=== PATIENT | male | born 1950 | race Caucasian/White ===

== ENCOUNTER 2019-02-17 20:11 | Inpatient (IN) | payer MEDICARE, OTHER ==
[2019-02-17] MEDS ORDERED: ACETAMINOPHEN 325 MG TABLET (FP) PO ONE (20:53)
[2019-02-17] MEDS ORDERED: ACETAMINOPHEN 325 MG TABLET (FP) ONE (20:58)
--- NOTE | 2019-02-17 20:59 | PDOC ---
History of Present Illness - General Chief Complaint: Hemorrhoids Stated Complaint: HEMORRHOID PROBLEM Time Seen by Provider: 02/17/19 20:28 History Source: Patient, Family Exam Limitations: Language Barrier Past History - Past Medical History Allergies/Adverse Reactions: Allergies Allergy/AdvReac Type Severity Reaction Status Date / Time No Known Allergies Allergy Verified 02/17/19 20:18 Home Medications: Ambulatory Orders Atorvastatin Ca [Lipitor] 40 mg PO HS 02/17/19 Glipizide 10 mg PO ASDIR 02/17/19 Metformin HCl [Glucophage] 1,000 mg PO ASDIR 02/17/19 COPD: No Diabetes: Yes HTN: Yes Hypercholesterolemia: Yes - Suicide/Smoking/Psychosocial Hx Smoking History: Never smoked *Physical Exam - Vital Signs Last Vital Signs Temp Pulse Resp BP Pulse Ox 98.4 F 70 18 140/68 100 02/17/19 20:18 02/17/19 20:18 02/17/19 20:18 02/17/19 20:18 02/17/19 20:18 - Physical Exam General Appearance: No: Apparent Distress Respiratory/Chest: positive: Lungs Clear, Normal Breath Sounds. negative: Respiratory Distress Cardiovascular: positive: Regular Rhythm, Regular Rate, S1, S2. negative: Murmur Gastrointestinal/Abdominal: positive: Normal Bowel Sounds, Soft. negative: Tender, Distended, Guarding, Rebound Rectal Exam: positive: other (no hemorrhoids noted, +skin tear around R side of rectum with induration surrounding site, unable to express pus; on digital exam , patient with no pain, no hemorrhoids palpable). negative: melena, hemorrhoids Integumentary: positive: Normal Color Neurologic: positive: Alert, Normal Mood/Affect ED Treatment Course - LABORATORY CBC & Chemistry Diagram: 02/17/19 21:07 02/17/19 21:07 Medical Decision Making - Medical Decision Making 68 y/o M with hx of DM presents with hemorrhoids x 4 days. Mentions he had hemorrhoids in the past few years in [place] and this feels similar to that. Denies fever, sob, cp, abd pain, n/v/d, constipation, rectal bleeding, melena, rectal pain. Patient with no pain while having bowel movement but only pain with wiping No hemorrhoids noted on exam Concern for perirectal abscess; will need CT scan to further assess Plan: Labs, Tylenol 02/17/19 20:56 CT A/P showed perianal abscess measuring 3x1.7x1 cm Discussed with surgery, Dr. Roman - recommends admission and to keep patient NPO Patient signed out to ABBY Mittal pending admission 02/17/19 23:12 *DC/Admit/Observation/Transfer Diagnosis at time of Disposition: Perianal abscess - Discharge Dispostion Condition at time of disposition: Stable Decision to Admit order: Yes - Referrals - Patient Instructions - Post Discharge Activity
[2019-02-17 21:13] LABS: BASO % 0.9 % (0-2.0); EOS % 1.2 % (0-4.5); HEMATOCRIT 36.9 % (35.4-49); HEMOGLOBIN 12.6 GM/dL (11.7-16.9); LYMPH % 17.9 % (8-40); MCH 31.6 pg (25.7-33.7); MCHC 34.1 g/dl (32.0-35.9); MEAN CELL VOLUME 92.7 fl (80-96); MEAN PLT VOLUME 7.8 fl (7.5-11.1); MONO % 5.8 % (3.8-10.2); NEUT % 74.2 % (42.8-82.8); PLATELET COUNT 192 K/MM3 (134-434); RBC 3.98 M/mm3 (4.00-5.60); RDW 13.6 % (11.9-15.9); WHITE BLOOD COUNT 7.2 K/mm3 (4.0-10.0)
[2019-02-17 21:40] LABS: ALBUMIN 3.8 g/dl (3.4-5.0); ALK PHOS 131 U/L (45-117); ANION GAP 5 MMOL/L (8-16); BILIRUBIN,TOTAL 0.8 mg/dL (0.2-1); BLOOD UREA NITROGEN 13 mg/dL (7-18); CALCIUM 8.9 mg/dL (8.5-10.1); CHLORIDE 103 mmol/L (98-107); CO2 30 mmol/L (21-32); CREATININE 0.8 mg/dL (0.55-1.3); GLUCOSE,RANDOM 197 mg/dL (74-106); POTASSIUM 3.9 mmol/L (3.5-5.1); SGOT/AST 23 U/L (15-37); SGPT/ALT 40 U/L (13-61); SODIUM 138 mmol/L (136-145); TOT PROT 7.7 g/dl (6.4-8.2)
[2019-02-17] MEDS ORDERED: AMOX TR/POT CLAV 875MG/125MG TABLETS (FP) PO ONE (23:12)
[2019-02-17] MEDS ORDERED: LACTATED RINGERS SOLUTION 1,000 ML IV SCH (23:45)
[2019-02-17] MEDS ORDERED: AMOX TR/POT CLAV 875MG/125MG TABLETS (FP) ONE (23:46)
--- NOTE | 2019-02-17 23:50 | PN ---
Teaching Attending Note Name of Resident: Ramon Garrison ATTENDING PHYSICIAN STATEMENT I saw and evaluated the patient. I reviewed the resident's note and discussed the case with the resident. I agree with the resident's findings and plan as documented. SUBJECTIVE: Seen and examined; please see resident note for further historical information. 4 days of pain around the perianal region in a patient with a PMH of hemorrhoids; he initially attributed this to hemorrhoidal pain but it did not remit so he came to the ER for further treatment and diagnostics. Was found on CT to have a 3cm perianal abscess. ER provider was able to express some pus. ER spoke to surgery who will see him in consult; appreciate their expert input. No recent abx, no prior abscess in the area. Nothing makes this better or worse. 10 sys ROS done and negative aside from HPI PMH, PSH, FH, SH reviewed Home Medications Medication Instructions Recorded Atorvastatin Ca [Lipitor] 40 mg PO HS 02/17/19 Glipizide 10 mg PO ASDIR 02/17/19 Metformin HCl [Glucophage] 1,000 mg PO ASDIR 02/17/19 OBJECTIVE: VS, labs, imaging reviewed NAD, AAO, resting comfortably in bed NC AT EOMI PERRLA RRR s1/2 no mgr Lungs CTAB, w/ sym exp NT ND +BS Small perianal abscess with tenderness and overlying erythema noted; fluctuance noted. Not actively draining at this point. CN2-12 wnl, no fnd Normal mood, appropriate behavior Preliminary imaging reviewed ASSESSMENT AND PLAN: Patient presents with a perianal abscess; surgery will see and he will be kept on broad spectrum abx. 1) Perianal abscess -Continue broad spectrum coverage; followup on intraop and blood cx and sn. -Pain control -NPO, IVF -Followup final imaging report and surgical recommendations. He is afebrile and hemodynamically stable; prelim imaging discussed -Tight glycemic control 2) DM with hyperglycemia -Hold PO antihyperglycemics and place on SSI while inpatient 3) HLD -Continue statin 4) Elevated Alk Phos -Check GGT; may be nonpathologic in geriatric population given mild nature FENA -LR@75 -PRN replete -NPO -As tolerated Full Code
[2019-02-17] MEDS ORDERED: ACETAMINOPHEN 325 MG TABLET (FP) PO PRN (23:52)
--- NOTE | 2019-02-18 00:06 | HP ---
CHIEF COMPLAINT: tank-anal abscess PCP: HISTORY OF PRESENT ILLNESS: Patient is a 68 y/o M w/ PMHx NIDDM p/w 4 days severe rectal/anal pain that was not relieved by home topical remedies and therefore presented to ED. No fever but did experience chills associated with spasmodic pain, ROS otherwise negative. On presentation was afebrile w/ stable vitals. No leukocytosis, CBC wnl. Elevated glucose to 197, otherwise all labs unremarkable. ED PA noticed left tank-anal area of induration which eventually expressed pus; rectal exam was otherwise negative. Pelvis CT demonstrated 3x1.7x1cm tank-anal abscess. Dr. Roman was consulted by ED and recommended admission and pre-operative workup for I&D tomorrow. Addtionally given dose of Augmentin by ED Recent Travel: PAST MEDICAL HISTORY: As per HPI PAST SURGICAL HISTORY: None Social History: Smoking: No Alcohol: No Drugs: No Family History: Allergies No Known Allergies Allergy (Verified 02/17/19 20:18) HOME MEDICATIONS: Home Medications Medication Instructions Recorded Atorvastatin Ca [Lipitor] 40 mg PO HS 02/17/19 Glipizide 10 mg PO ASDIR 02/17/19 Metformin HCl [Glucophage] 1,000 mg PO ASDIR 02/17/19 REVIEW OF SYSTEMS As per HPI PHYSICAL EXAMINATION Vital Signs - 24 hr 02/17/19 20:18 Temperature 98.4 F Pulse Rate 70 Respiratory 18 Rate Blood Pressure 140/68 O2 Sat by Pulse 100 Oximetry (%) GENERAL: A&Ox3, NAD HEENT: NC/AT, PERRLA, EOMI NECK: Normal range of motion, supple without lymphadenopathy, JVD, or masses. LUNGS: CTA b/l HEART: RRR no m/r/g ABDOMEN: +bs, soft, NT, ND MUSCULOSKELETAL: Normal range of motion at all joints. No bony deformities or tenderness. No CVA tenderness. EXTREMITIES: 2+ pulses, warm, well-perfused. No calf tenderness. No peripheral edema. NEUROLOGICAL: judicial administrative assistant, motor, sensory systems w/o focal deficit PSYCHIATRIC: Cooperative. Good eye contact. Appropriate mood and affect. SKIN: erythematous, indurated, purulent L tank-anal lesion Laboratory Results - last 24 hr 02/17/19 02/17/19 21:07 21:07 WBC 7.2 RBC 3.98 L Hgb 12.6 Hct 36.9 MCV 92.7 MCH 31.6 MCHC 34.1 RDW 13.6 Plt Count 192 MPV 7.8 Absolute Neuts (auto) 5.4 Neutrophils % 74.2 Lymphocytes % 17.9 Monocytes % 5.8 Eosinophils % 1.2 Basophils % 0.9 Nucleated RBC % 0 Sodium 138 Potassium 3.9 Chloride 103 Carbon Dioxide 30 Anion Gap 5 L BUN 13 Creatinine 0.8 Creat Clearance w eGFR 95.57 Random Glucose 197 H Calcium 8.9 Total Bilirubin 0.8 AST 23 ALT 40 Alkaline Phosphatase 131 H Total Protein 7.7 Albumin 3.8 ASSESSMENT/PLAN: 68 y/o M w/ PMHx NIDDM p/w tank-anal abscess noted by pelvic CT #A: -3cm tank-anal abscess per CT -no signs of systemic infection -DM #P: -Surgery consulted, Dr. Roman gave recommendations -IV Cefazolin and metronidazole -SSI, BGM ACHS -home Lipitor -f/u CBC, BMP, Mg, Phos -f/u T/S, coags -LR @ 75 -NPO -mechanical DVT PPx -full code -admit to med/surg Visit type - Emergency Visit Emergency Visit: Yes Care time: The patient presented to the Emergency Department on the above date and was hospitalized for further evaluation of their emergent condition. - New Patient This patient is new to me today: Yes Date on this admission: 02/18/19 - Critical Care Critical Care patient: No
[2019-02-18 00:33] LABS: INR 1.03 (0.83-1.09); PROTHROMBIN TIME (PATIENT) 12.2 SEC (9.7-13.0)
[2019-02-18 00:36] LABS: ACTIVATED PTT 36.2 SECONDS (25.2-36.5)
[2019-02-18] MEDS: CEFAZOLIN 1 GM/D5W 1 GM/50 ML BAG IVPB SCH ×2 (02:11→09:31)
[2019-02-18 02:23] VITALS: BMI 30.4
[2019-02-18] MEDS ORDERED: INSULIN (NOVOLOG) ASPART 100 UNITS/ML 10ML VIAL ONE ×3 (05:31→21:40)
[2019-02-18] MEDS: INSULIN SLIDING SCALE (NOVOLOG) 1 VIAL SQ SCH ×3 (06:23→21:42)
[2019-02-18 07:30] LABS: BASO % 0.2 % (0-2.0); EOS % 1.4 % (0-4.5); HEMATOCRIT 33.1 % (35.4-49); HEMOGLOBIN 11.6 GM/dL (11.7-16.9); LYMPH % 14.3 % (8-40); MCH 31.6 pg (25.7-33.7); MCHC 34.9 g/dl (32.0-35.9); MEAN CELL VOLUME 90.5 fl (80-96); MEAN PLT VOLUME 8.2 fl (7.5-11.1); MONO % 6.7 % (3.8-10.2); NEUT % 77.4 % (42.8-82.8); PLATELET COUNT 177 K/MM3 (134-434); RBC 3.66 M/mm3 (4.00-5.60); RDW 13.7 % (11.9-15.9); WHITE BLOOD COUNT 6.2 K/mm3 (4.0-10.0)
[2019-02-18 08:02] LABS: ANION GAP 9 MMOL/L (8-16); BLOOD UREA NITROGEN 12 mg/dL (7-18); CALCIUM 8.5 mg/dL (8.5-10.1); CHLORIDE 104 mmol/L (98-107); CO2 27 mmol/L (21-32); CREATININE 0.6 mg/dL (0.55-1.3); GLUCOSE,RANDOM 127 mg/dL (74-106); PHOSPHOROUS 4.3 mg/dL (2.5-4.9); POTASSIUM 3.9 mmol/L (3.5-5.1); SODIUM 140 mmol/L (136-145)
[2019-02-18 08:32] LABS: GAMMA GLUTAMYL TRANSPEPTIDASE 31 U/L (5-85)
--- NOTE | 2019-02-18 08:44 | PN ---
Teaching Attending Note Name of Resident: Sarah Beth Trinidad ATTENDING PHYSICIAN STATEMENT I saw and evaluated the patient. I reviewed the resident's note and discussed the case with the resident. I agree with the resident's findings and plan as documented. SUBJECTIVE: C/O rectal pain not in distress OBJECTIVE: Vital Signs Temperature 98.3 F 02/18/19 06:35 Pulse Rate 72 02/18/19 06:35 Respiratory Rate 20 02/18/19 06:35 Blood Pressure 115/74 02/18/19 06:35 O2 Sat by Pulse Oximetry (%) 98 02/18/19 00:43 GENERAL: Elderly mna not in distress HEENT: NC/AT, PERRLA, EOMI NECK: Normal range of motion, supple without lymphadenopathy, JVD, or masses. LUNGS: CTA b/l HEART: RRR no m/r/g ABDOMEN: +bs, soft, NT, ND MUSCULOSKELETAL: Normal range of motion at all joints. No bony deformities or tenderness. No CVA tenderness. EXTREMITIES: 2+ pulses, warm, well-perfused. No calf tenderness. No peripheral edema. NEUROLOGICAL: Aox3 non focal DERM: Larissa-anal swelling, erythema and tenderness CBC, BMP 02/18/19 06:30 02/18/19 06:30 Active Medications Acetaminophen (Tylenol -) 650 mg PO Q4H PRN PRN Reason: PAIN Last Admin: 02/18/19 05:41 Dose: 650 mg Atorvastatin Calcium (Lipitor -) 40 mg PO HS MARTINEZ Cefazolin Sodium (Ancef 1 Gm Premixed Ivpb -) 1 gm in 50 mls @ 100 mls/hr IVPB Q8H-IV MARTINEZ Last Admin: 02/18/19 02:11 Dose: 100 mls/hr Metronidazole (Flagyl 500mg Premixed Ivpb -) 500 mg in 100 mls @ 100 mls/hr IVPB Q8H-IV MARTINEZ Last Admin: 02/18/19 02:59 Dose: 100 mls/hr Lactated Ringer's (Lactated Ringers Solution) 1,000 mls @ 75 mls/hr IV ASDIR MARTINEZ Last Admin: 02/18/19 02:10 Dose: 75 mls/hr Insulin Aspart (Novolog Vial Sliding Scale -) 1 vial SQ ACHS [facility]; Protocol Last Admin: 02/18/19 06:23 Dose: Not Given ASSESSMENT AND PLAN: 68 yrs old man with T2DM and high cholestrol admitted with peranal abscess schedule for I and D. Problem List - Problems (1) Perianal abscess Assessment/Plan: Cont Pian control IC Cefazolin and Flagyl , surgery consult. Code(s): K61.0 - ANAL ABSCESS (2) HTN (hypertension) Assessment/Plan: Well controlled cont all home meds Code(s): I10 - ESSENTIAL (PRIMARY) HYPERTENSION (3) T2DM (type 2 diabetes mellitus) Assessment/Plan: Hold PO meds cont correction dose insulin. Code(s): E11.9 - TYPE 2 DIABETES MELLITUS WITHOUT COMPLICATIONS (4) Obesity (BMI 30.0-34.9) Code(s): E66.9 - OBESITY, UNSPECIFIED
--- NOTE | 2019-02-18 10:20 | CONSULT ---
- Consultation REQUESTING PROVIDER: CONSULT REQUEST: We have been asked to surgically evaluate this patient for ( tank-anal abscess). PCP:Kiran Ackerman MD HISTORY OF PRESENT ILLNESS: 68 y/o M w/ PMHx NIDDM a/w 4 days severe rectal/ anal pain. Pt reports he began having severe pain a few days ago and has tried various home topical remedies with no improvement. Denies fevers at home but does report chills. Has a history of hemorrhoids which improve with OTC meds. Denies n/v/d, prior abscess or surgical intervention for abscesses. PMHx: as above PSHx: none Home Medications Medication Instructions Recorded Atorvastatin Ca [Lipitor] 40 mg PO HS 02/17/19 Glipizide 10 mg PO ASDIR 02/17/19 Metformin HCl [Glucophage] 1,000 mg PO ASDIR 02/17/19 Allergies Allergy/AdvReac Type Severity Reaction Status Date / Time No Known Allergies Allergy Verified 02/17/19 20:18 REVIEW OF SYSTEMS: CONSTITUTIONAL: Absent: fever, + chills, - diaphoresis CARDIOVASCULAR: Absent: chest pain RESPIRATORY: Absent: cough, shortness of breath GASTROINTESTINAL: Absent: abdominal pain PHYSICAL EXAM: GENERAL: Awake, alert, and fully oriented, in no acute distress. HEAD: Normal with no signs of trauma. LUNGS: Unlabored on RA, No accessory muscle use. Rectum: Approx 2.5x 2.5cm circular abscess (?thrombosed hemorrhoid) L posterior tank-rectal Vital Signs Temperature 98.3 F 02/18/19 06:35 Pulse Rate 72 02/18/19 06:35 Respiratory Rate 20 02/18/19 06:35 Blood Pressure 115/74 02/18/19 06:35 O2 Sat by Pulse Oximetry (%) 98 02/18/19 00:43 Lab Results WBC 6.2 K/mm3 (4.0-10.0) 02/18/19 06:30 RBC 3.66 M/mm3 (4.00-5.60) L 02/18/19 06:30 Hgb 11.6 GM/dL (11.7-16.9) L 02/18/19 06:30 Hct 33.1 % (35.4-49) L 02/18/19 06:30 MCV 90.5 fl (80-96) 02/18/19 06:30 MCHC 34.9 g/dl (32.0-35.9) 02/18/19 06:30 RDW 13.7 % (11.9-15.9) 02/18/19 06:30 Plt Count 177 K/MM3 (134-434) 02/18/19 06:30 Sodium 140 mmol/L (136-145) 02/18/19 06:30 Potassium 3.9 mmol/L (3.5-5.1) 02/18/19 06:30 Chloride 104 mmol/L (98-107) 02/18/19 06:30 Carbon Dioxide 27 mmol/L (21-32) 02/18/19 06:30 Anion Gap 9 MMOL/L (8-16) 02/18/19 06:30 BUN 12 mg/dL (7-18) 02/18/19 06:30 Creatinine 0.6 mg/dL (0.55-1.3) 02/18/19 06:30 Random Glucose 127 mg/dL (74-106) H 02/18/19 06:30 Calcium 8.5 mg/dL (8.5-10.1) 02/18/19 06:30 Blood Type Cancelled 02/17/19 23:46 Antibody Screen Cancelled 02/17/19 23:46 INR 1.03 (0.83-1.09) 02/17/19 23:46 A/P: 68 y/o M w/ PMHx NIDDM a/w 4 days severe rectal/anal pain. Pt with tank-anal abscess/thrombosed hemorrhoid Plan for I&D in OR for EUA, I&D perianal abscess/thrombosed hemorrhoid today with Dr Roman Keep NPO Labs in system Consent per attending pt seen and examined with attending Dr Roman
[2019-02-18] MEDS ORDERED: ONDANSETRON 4 MG/2 ML VIAL IVPUSH PRN ×4 (11:27→17:28)
--- NOTE | 2019-02-18 11:42 | PN ---
Physical Exam: SUBJECTIVE: Patient seen and examined. he is still complaining of rectal pain, no chills. OBJECTIVE: Vital Signs Period Temp Pulse Resp BP Sys/Roblero Pulse Ox Last 24 Hr 98.2 F-98.4 F 66-72 18-20 115-140/68-75 98-100 GENERAL: The patient is awake, alert, and fully oriented, in no acute distress. HEAD: Normal with no signs of trauma. EYES: Extraocular movements intact. ENT: Moist mucous membranes. NECK: Trachea midline, full range of motion, supple. LUNGS: Clear to auscultation bilaterally, no wheezes, no crackles, no accessory muscle use. HEART: Regular rate and rhythm, S1, S2 without murmur, rub or gallop. ABDOMEN: Soft, nontender, nondistended, normoactive bowel sounds. EXTREMITIES: 2+ pulses, warm, no edema. NEUROLOGICAL: Normal speech, gait not observed. PSYCH: Normal mood, normal affect. SKIN: Warm, dry, normal turgor, no rashes. RECTAL: 2 cm abscess, in upper rectal area, tender to palpation, erythema, no drainage. Laboratory Results - last 24 hr 02/17/19 02/17/19 02/17/19 21:07 21:07 23:46 WBC 7.2 RBC 3.98 L Hgb 12.6 Hct 36.9 MCV 92.7 MCH 31.6 MCHC 34.1 RDW 13.6 Plt Count 192 MPV 7.8 Absolute Neuts (auto) 5.4 Neutrophils % 74.2 Lymphocytes % 17.9 Monocytes % 5.8 Eosinophils % 1.2 Basophils % 0.9 Nucleated RBC % 0 ESR PT with INR 12.20 INR 1.03 PTT (Actin FS) 36.2 Sodium 138 Potassium 3.9 Chloride 103 Carbon Dioxide 30 Anion Gap 5 L BUN 13 Creatinine 0.8 Creat Clearance w eGFR 95.57 POC Glucometer Random Glucose 197 H Hemoglobin A1c % Calcium 8.9 Phosphorus Magnesium Total Bilirubin 0.8 GGT AST 23 ALT 40 Alkaline Phosphatase 131 H C-Reactive Protein Total Protein 7.7 Albumin 3.8 Blood Type Antibody Screen 02/17/19 02/18/19 02/18/19 23:46 01:43 05:38 WBC RBC Hgb Hct MCV MCH MCHC RDW Plt Count MPV Absolute Neuts (auto) Neutrophils % Lymphocytes % Monocytes % Eosinophils % Basophils % Nucleated RBC % ESR 28 H PT with INR INR PTT (Actin FS) Sodium Potassium Chloride Carbon Dioxide Anion Gap BUN Creatinine Creat Clearance w eGFR POC Glucometer 124 Random Glucose Hemoglobin A1c % Calcium Phosphorus Magnesium Total Bilirubin GGT AST ALT Alkaline Phosphatase C-Reactive Protein Total Protein Albumin Blood Type Cancelled Antibody Screen Cancelled 02/18/19 02/18/19 02/18/19 06:30 06:30 06:30 WBC 6.2 RBC 3.66 L Hgb 11.6 L Hct 33.1 L MCV 90.5 MCH 31.6 MCHC 34.9 RDW 13.7 Plt Count 177 MPV 8.2 Absolute Neuts (auto) 4.8 Neutrophils % 77.4 Lymphocytes % 14.3 D Monocytes % 6.7 Eosinophils % 1.4 Basophils % 0.2 Nucleated RBC % 0 ESR PT with INR INR PTT (Actin FS) Sodium 140 Potassium 3.9 Chloride 104 Carbon Dioxide 27 Anion Gap 9 BUN 12 Creatinine 0.6 Creat Clearance w eGFR 133.20 POC Glucometer Random Glucose 127 H Hemoglobin A1c % Calcium 8.5 Phosphorus 4.3 Magnesium 2.0 Total Bilirubin GGT 31 AST ALT Alkaline Phosphatase C-Reactive Protein 0.5 H Total Protein Albumin Blood Type Antibody Screen 02/18/19 02/18/19 06:30 11:17 WBC RBC Hgb Hct MCV MCH MCHC RDW Plt Count MPV Absolute Neuts (auto) Neutrophils % Lymphocytes % Monocytes % Eosinophils % Basophils % Nucleated RBC % ESR PT with INR INR PTT (Actin FS) Sodium Potassium Chloride Carbon Dioxide Anion Gap BUN Creatinine Creat Clearance w eGFR POC Glucometer 118 Random Glucose Hemoglobin A1c % 7.3 H Calcium Phosphorus Magnesium Total Bilirubin GGT AST ALT Alkaline Phosphatase C-Reactive Protein Total Protein Albumin Blood Type Antibody Screen Active Medications Generic Name Dose Route Start Last Admin Trade Name Freq PRN Reason Stop Dose Admin Acetaminophen 650 mg 02/17/19 23:52 02/18/19 05:41 Tylenol - PO 650 mg Q4H PRN Administration PAIN Atorvastatin Calcium 40 mg 02/18/19 22:00 Lipitor - PO HS MARTINEZ Hydromorphone HCl 2 mg 02/18/19 12:00 Dilaudid Vial - IVPB Q6H MARTINEZ Cefazolin Sodium 1 gm in 50 mls @ 100 mls/hr 02/18/19 02:00 02/18/19 09:31 Ancef 1 Gm Premixed Ivpb - IVPB 100 mls/hr Q8H-IV MARTINEZ Administration Metronidazole 500 mg in 100 mls @ 100 mls/hr 02/18/19 02:00 02/18/19 10:18 Flagyl 500mg Premixed Ivpb - IVPB 100 mls/hr Q8H-IV MARTINEZ Administration Lactated Ringer's 1,000 mls @ 75 mls/hr 02/17/19 23:45 02/18/19 02:10 Lactated Ringers Solution IV 75 mls/hr ASDIR MARTINEZ Administration Insulin Aspart 1 vial 02/18/19 07:00 02/18/19 11:18 Novolog Vial Sliding Scale - SQ Not Given ACHS MARTINEZ Protocol Ondansetron HCl 4 mg 02/18/19 11:27 Zofran Injection IVPUSH Q6H PRN NAUSEA ASSESSMENT/PLAN: The patient is a 68 y/o M w/ PMHx NIDDM, hyperlipidemia presented with tank- anal abscess noted by pelvic CT admitted for I&O by surgery. Perirectal abscess: -3cm tank anal abscess per CT, NPO, type and screen, continue LR -no signs of systemic infection, no elevvated WBC, no fever, chills -diabetic patient, will monitor glu -scheduled for incision and drainage later today -will follow up Dr Roman recommendations -given IV Cefazolin and metronidazole DMII: -ISS ACHS -BGM ACHS -HgA1c ordered Dyslipidemia: -continue Lipitor DVT PPX: mechanical DVT PPx Disposition: med/surg Problem List - Problems (1) HTN (hypertension) Code(s): I10 - ESSENTIAL (PRIMARY) HYPERTENSION (2) Obesity (BMI 30.0-34.9) Code(s): E66.9 - OBESITY, UNSPECIFIED (3) Perianal abscess Code(s): K61.0 - ANAL ABSCESS (4) T2DM (type 2 diabetes mellitus) Code(s): E11.9 - TYPE 2 DIABETES MELLITUS WITHOUT COMPLICATIONS Visit type - Emergency Visit Emergency Visit: Yes ED Registration Date: 02/17/19 Care time: The patient presented to the Emergency Department on the above date and was hospitalized for further evaluation of their emergent condition. - New Patient This patient is new to me today: Yes Date on this admission: 02/18/19 - Critical Care Critical Care patient: No - Discharge Referral Referred to [facility] Med P.C.: No
[2019-02-18] MEDS ORDERED: HYDROmorphone HCl 2 MG/ML VIAL IVPB SCH (12:00)
[2019-02-18] MEDS ORDERED: PROPOFOL 20 ML ONE (16:15)
[2019-02-18] MEDS ORDERED: MIDAZOLAM HCL 2 MG/2 ML SINGLE DOSE VIAL ONE (16:16)
[2019-02-18] MEDS ORDERED: PROMETHAZINE HCL 25 MG/1 ML VIAL IVPUSH PRN ×2 (16:43→17:28)
[2019-02-18] MEDS ORDERED: oxyCODONE HCL 5 MG TABLET PO PRN ×2 (16:43→17:28)
--- NOTE | 2019-02-18 17:18 | OP ---
<Van Siddiqui - Last Filed: 02/18/19 17:16> Operative Note - Note: Operative Date: 02/18/19 Pre-Operative Diagnosis: Perirectal abscess Operation: Excision of perirectal abscess Post-Operative Diagnosis: Same as Pre-op Surgeon: Jon Roman Hrbp: Van Siddiqui Anesthesiologist/FAST FOOD ASSISTANT RESTAURANT MANAGER: Joby Orozco Anesthesia: Spinal Operative Report Dictated: Yes <Jon Roman - Last Filed: 02/19/19 11:55> Operative Note - Note: Operation: Excision of thrombosed external hemorrhoid Findings: thrombosed external hemorrhoid Post-Operative Diagnosis: Other (thrombosed external hemorrhoid) Specimens Removed: thrombosed external hemorrhoid Estimated Blood Loss (mls): 0
--- NOTE | 2019-02-18 17:18 | SURG ---
Surgery Chalk Extruding Machine Operator Note Chalk Extruding Machine Operator: Van Siddiqui PA-C Date of Service: 02/18/19 Diagnosis: perirectal abscess Procedure: excision of perirectal abscess I was present for the entirety of the operative procedure. For further detail, please refer to operative report. <Van Siddiqui - Last Filed: 02/18/19 17:18> Procedure: excision of thrombosed external hemorrhoid I was present for the entirety of the operative procedure. For further detail, please refer to operative report. <Jon Roman - Last Filed: 02/19/19 11:56> Visit type - Emergency Emergency Visit: Yes ED Registration Date: 02/17/19 Care time: The patient presented to the Emergency Department on the above date and was hospitalized for further evaluation of their emergent condition. - New patient This patient is new to me today: Yes Date on this admission: 02/18/19 - Critical Care Critical Care patient: No <Van Siddiqui - Last Filed: 02/18/19 17:18>
[2019-02-18] MEDS ORDERED: LACTATED RINGERS SOLUTION 1,000 ML IV SCH (17:28)
[2019-02-18] MEDS ORDERED: ACETAMINOPHEN 325 MG TABLET (FP) PO PRN (17:28)
[2019-02-18] MEDS ORDERED: ATORVASTATIN CA 40 MG TABLET (FP) PO SCH ×2 (22:00)
[2019-02-19] MEDS: INSULIN SLIDING SCALE (NOVOLOG) 1 VIAL SQ SCH ×3 (06:23→11:56)
[2019-02-19 07:36] LABS: BASO % 0.6 % (0-2.0); EOS % 2.5 % (0-4.5); HEMATOCRIT 34.6 % (35.4-49); HEMOGLOBIN 11.8 GM/dL (11.7-16.9); LYMPH % 25.6 % (8-40); MCH 31.2 pg (25.7-33.7); MCHC 34.1 g/dl (32.0-35.9); MEAN CELL VOLUME 91.4 fl (80-96); MEAN PLT VOLUME 7.9 fl (7.5-11.1); MONO % 6.1 % (3.8-10.2); NEUT % 65.2 % (42.8-82.8); PLATELET COUNT 190 K/MM3 (134-434); RBC 3.79 M/mm3 (4.00-5.60); RDW 13.5 % (11.9-15.9); WHITE BLOOD COUNT 4.1 K/mm3 (4.0-10.0)
[2019-02-19 07:48] LABS: ALBUMIN 3.2 g/dl (3.4-5.0); ALK PHOS 105 U/L (45-117); ANION GAP 5 MMOL/L (8-16); BILIRUBIN,TOTAL 0.8 mg/dL (0.2-1); BLOOD UREA NITROGEN 10 mg/dL (7-18); CALCIUM 8.7 mg/dL (8.5-10.1); CHLORIDE 104 mmol/L (98-107); CO2 28 mmol/L (21-32); CREATININE 0.6 mg/dL (0.55-1.3); GLUCOSE,RANDOM 135 mg/dL (74-106); POTASSIUM 3.9 mmol/L (3.5-5.1); SGOT/AST 22 U/L (15-37); SGPT/ALT 33 U/L (13-61); SODIUM 137 mmol/L (136-145); TOT PROT 6.8 g/dl (6.4-8.2)
--- NOTE | 2019-02-19 08:14 | PN ---
Teaching Attending Note Name of Resident: Sarah Beth Trinidad ATTENDING PHYSICIAN STATEMENT I saw and evaluated the patient. I reviewed the resident's note and discussed the case with the resident. I agree with the resident's findings and plan as documented. SUBJECTIVE: Feels improved underwent I and D yesterday OBJECTIVE: Vital Signs Temperature 98.3 F 02/19/19 06:48 Pulse Rate 50 L 02/19/19 06:48 Respiratory Rate 20 02/19/19 06:48 Blood Pressure 112/66 02/19/19 06:48 O2 Sat by Pulse Oximetry (%) 99 02/18/19 21:00 CBC, BMP 02/19/19 06:40 02/19/19 06:40 Active Medications Acetaminophen (Tylenol -) 650 mg PO Q4H PRN PRN Reason: PAIN LEVEL 1-5 Atorvastatin Calcium (Lipitor -) 40 mg PO HS [facility] Last Admin: 02/18/19 21:41 Dose: 40 mg Insulin Aspart (Novolog Vial Sliding Scale -) 1 vial SQ [facility]; Protocol Last Admin: 02/19/19 06:23 Dose: Not Given Ondansetron HCl (Zofran Injection) 4 mg IVPUSH Q6H PRN PRN Reason: NAUSEA Ondansetron HCl (Zofran Injection) 4 mg IVPUSH Q6H PRN PRN Reason: NAUSEA AND/OR VOMITING Oxycodone HCl (Roxicodone -) 5 mg PO Q4H PRN PRN Reason: PAIN LEVEL 6-10 ASSESSMENT AND PLAN:68 yrs old man with T2DM and high cholestrol admitted with peranal abscess schedule for I and D. Problem List - Problems (1) Perianal abscess Assessment/Plan: s/p I and D discussed , discussed with surgery team recommonded dressing and care at home no need for abx, can be Dc home. Code(s): K61.0 - ANAL ABSCESS (2) HTN (hypertension) Assessment/Plan: Well controlled cont all home meds Code(s): I10 - ESSENTIAL (PRIMARY) HYPERTENSION (3) T2DM (type 2 diabetes mellitus) Assessment/Plan: Resume home meds on DC. Code(s): E11.9 - TYPE 2 DIABETES MELLITUS WITHOUT COMPLICATIONS (4) Obesity (BMI 30.0-34.9) Assessment/Plan: No active issue Code(s): E66.9 - OBESITY, UNSPECIFIED
--- NOTE | 2019-02-19 11:24 | DS ---
Physical Exam: SUBJECTIVE: Patient seen and examined, feeling much better, pain improved. OBJECTIVE: Vital Signs Period Temp Pulse Resp BP Sys/Roblero Pulse Ox Last 24 Hr 97.7 F-98.4 F 42-58 12-20 93-133/54-76 99-100 PHYSICAL EXAM GENERAL: The patient is awake, alert, and fully oriented, in no acute distress. HEAD: Normal with no signs of trauma. EYES: Extraocular movements intact. ENT: Moist mucous membranes. NECK: Trachea midline, full range of motion, supple. LUNGS: Clear to auscultation bilaterally, no wheezes. HEART: Regular rate and rhythm, S1, S2 without murmur, rub or gallop. ABDOMEN: Soft, nontender, normoactive bowel sounds. EXTREMITIES: 2+ pulses, warm, no edema. NEUROLOGICAL: Normal speech, gait not observed. PSYCH: Normal mood, normal affect. SKIN: Warm, dry, normal turgor, no rashes. RECTAL:rectal area mild tenderness to palpation, erythema, no drainage. LABS Laboratory Results - last 24 hr 02/18/19 02/18/19 02/19/19 17:44 20:44 06:14 WBC RBC Hgb Hct MCV MCH MCHC RDW Plt Count MPV Absolute Neuts (auto) Neutrophils % Lymphocytes % Monocytes % Eosinophils % Basophils % Nucleated RBC % Sodium Potassium Chloride Carbon Dioxide Anion Gap BUN Creatinine Creat Clearance w eGFR POC Glucometer 160 192 126 Random Glucose Hemoglobin A1c % Calcium Total Bilirubin AST ALT Alkaline Phosphatase Total Protein Albumin 02/19/19 02/19/19 02/19/19 06:40 06:40 06:40 WBC 4.1 RBC 3.79 L Hgb 11.8 Hct 34.6 L MCV 91.4 MCH 31.2 MCHC 34.1 RDW 13.5 Plt Count 190 MPV 7.9 Absolute Neuts (auto) 2.7 Neutrophils % 65.2 Lymphocytes % 25.6 D Monocytes % 6.1 Eosinophils % 2.5 Basophils % 0.6 Nucleated RBC % 0 Sodium 137 Potassium 3.9 Chloride 104 Carbon Dioxide 28 Anion Gap 5 L BUN 10 Creatinine 0.6 Creat Clearance w eGFR 133.20 POC Glucometer Random Glucose 135 H Hemoglobin A1c % 7.1 H Calcium 8.7 Total Bilirubin 0.8 AST 22 ALT 33 Alkaline Phosphatase 105 Total Protein 6.8 Albumin 3.2 L HOSPITAL COURSE: Patient is a 68 y/o M w/ PMHx NIDDM p/w 4 days severe rectal/anal pain that was not relieved by home topical remedies and therefore presented to ED. No fever but did experience chills associated with spasmodic pain, ROS otherwise negative. On presentation was afebrile w/ stable vitals. No leukocytosis, CBC wnl. Elevated glucose to 197, otherwise all labs unremarkable. ED PA noticed left tank-anal area of induration which eventually expressed pus; rectal exam was otherwise negative. Pelvis CT demonstrated 3x1.7x1cm tank-anal abscess. Dr. Roman was consulted by ED and recommended admission and pre-operative workup for I&D. Addtionally given dose of Augmentin by ED. During the hospital course, he had I&D done by surgery, pain improved, no antibiotics were recommended. he was discharged with recommendation t follow up with Dr Roman within a week. We also managed his diabetes and cholesterol. Date of Admission:02/17/19 Date of Discharge: 02/19/19 Minutes to complete discharge: 30 Discharge Summary Reason For Visit: PERIANAL ABCESS Current Active Problems HTN (hypertension) (Acute) Obesity (BMI 30.0-34.9) (Acute) Perianal abscess (Acute) T2DM (type 2 diabetes mellitus) (Acute) Condition: Good - Instructions Diet, Activity, Other Instructions: You were admitted to the hospital for perirectal abscess. After draining the pus by surgery, we discharged you home. No antibiotics are given to you. Please continue all your activities as before coming to the hospital. Please continue all your medications as before coming to the hospital. If you have pain, you can take over the counter pain medications like Tylenol. If you have severe pain, fever, chills or worsening of any of your symptoms, come back to Emergency Room as soon as possible. Please visit your primary care physician in a week or two. Sitz baths and or showers daily and after bowel movements. Keep area clean and dry. Cover with dry gauze. Call Dr. Salgado office and speak with Fahad, he will schedule follow up care in the office. Take stool softeners over the counter for any constipation. Referrals: Jon Roman MD [Staff Physician] - Shemar Calderon MD [Staff Physician] - Disposition: HOME - Home Medications Comprehensive Discharge Medication List: Ambulatory Orders Atorvastatin Ca [Lipitor] 40 mg PO HS 02/17/19 Glipizide 10 mg PO ASDIR 02/17/19 Metformin HCl [Glucophage] 1,000 mg PO ASDIR 02/17/19 Problem List - Problems (1) HTN (hypertension) Code(s): I10 - ESSENTIAL (PRIMARY) HYPERTENSION (2) Obesity (BMI 30.0-34.9) Code(s): E66.9 - OBESITY, UNSPECIFIED (3) Perianal abscess Code(s): K61.0 - ANAL ABSCESS (4) T2DM (type 2 diabetes mellitus) Code(s): E11.9 - TYPE 2 DIABETES MELLITUS WITHOUT COMPLICATIONS This patient is new to me today: No Emergency Visit: Yes ED Registration Date: 02/17/19 Care time: The patient presented to the Emergency Department on the above date and was hospitalized for further evaluation of their emergent condition. Critical Care patient: No - Discharge Referral Referred to [facility] No
--- NOTE | 2019-02-19 12:02 | PN ---
Progress Note (short form) - Note Progress Note: Attending Surgeon POD #1 No c/o VSS AF wound open and clean andw/o bleeding IMP: doing well PLAN: D/C to office f/u; instructionds given verbally in Pashto. Jon Roman MD FACS
[2019-02-19 12:36] VITALS: BP 113/71; PULSE 57; TEMP 98
--- NOTE | 2019-02-19 13:16 | OP ---
DATE OF OPERATION: DATE OF DICTATION: 02/19/2019 PREOPERATIVE DIAGNOSIS: Perianal abscess. POSTOPERATIVE DIAGNOSIS: Thrombosed external hemorrhoid. PROCEDURE: Examination under anesthesia and excision of thrombosed external hemorrhoid. SURGEON: Jon Roman MD LOAN REVIEW ANALYST: Van Siddiqui PA-C ANESTHESIA: Regional. OPERATIVE FINDINGS: There was a thrombosed external hemorrhoid to the left of the midline at approximately the 4 o'clock position. The rest of the findings were unremarkable. PROCEDURE: The patient was placed on the operating room table in the dorsal lithotomy position and after the placement of spinal anesthesia. Exam was carried out, and the previously noted findings were observed. An incision was mapped out over the thrombosed external hemorrhoid and excision carried out with scalpel. The specimen was sent for pathological examination. The wound was copiously irrigated and hemostasis secured with electrocautery, and the wound packed with quarter- inch Iodoform packing and dressed with dry, sterile dressings. The procedure was terminated at this point and the patient transferred to the postanesthesia care unit in stable condition awake and alert. ESTIMATED BLOOD LOSS: Minimal. DRAINS: None. SPECIMEN: External hemorrhoidal complex to Pathology. I, Jon Roman MD, was physically present in the operating room from the time the patient was placed on the operating room table until he was transferred to the postanesthesia care unit in my accompaniment. Jon Louis MD /[id number] MTDD
--- NOTE | 2019-02-21 11:41 | PATH ---
Surgical Pathology Report Patient Name: ROGE POLK Med. Rec. #: [id number] /Age/Gender: 1950 (Age: 68) / M Account: [id number] Location: [facility] MED/SURG Taken: 02/18/2019 Received: 02/19/2019 Reported: 02/21/2019 Physicians: MD Kiran Flowers M.D. Specimen(s) Received HEMORRHOIDS Clinical History Perianal abscess Final Diagnosis PERIANAL ABSCESS, EXCISION: BENIGN SQUAMOUS MUCOSA WITH AREAS OF ULCERATION, SINUS TRACTS, AND ABSCESS FORMATION. SURROUNDING TISSUE SHOWS ACUTE AND CHRONIC INFLAMMATION. Electronically Signed George Rosen M.D. Gross Description Received in formalin labeled "perianal abscess," is a 2.0 x 1.2 cm soares baker, elliptical portion of skin excised to depth of 1.1 cm, possibly consistent with a hemorrhoid. The base is inked green and artist representative sections are submitted in one cassette. /02/20/2019 [facility]02/20/2019
== END 2019-02-19 15:44 | disposition home or self-care (01) | DRG 348 ==
LOC: JER 20:11 → JERFT 20:11 → JERBED 23:13 → J8W 02-18 00:39
PROVIDERS: ADMIT Internal Medicine; ATTEND Internal Medicine
PROC: 06BY0ZC Excision of Hemorrhoidal Plexus, Open Approach (ICD-10-PCS; principal; 2019-02-18 16:00)
DX: K64.5 Perianal venous thrombosis (principal); K61.0 Anal abscess; E11.65 Type 2 diabetes mellitus with hyperglycemia; E66.9 Obesity, unspecified; Z68.34 Body mass index [BMI] 34.0-34.9, adult; I10 Essential (primary) hypertension; E78.5 Hyperlipidemia, unspecified; E83.39 Other disorders of phosphorus metabolism; Z79.4 Long term (current) use of insulin
CPT/HCPCS: 36415; 72193-TC; 80048; 80053; 82962; 82977; 83036; 83735; 84100; 85025; 85610; 85651; 85730; 86140; 88304-TC; 94760; 99285-25

== ENCOUNTER 2019-04-10 08:05 | Emergency (ER) | payer OTHER ==
[2019-04-10 08:09] VITALS: BMI 30.2
[2019-04-10] MEDS ORDERED: ONDANSETRON 4 MG/2 ML VIAL IVPUSH ONE (08:34)
[2019-04-10] MEDS ORDERED: SODIUM CHLORIDE 1,000 ML IV STA (08:34)
[2019-04-10 08:47] LABS: BASO % 0.2 % (0-2.0); EOS % 0.2 % (0-4.5); HEMATOCRIT 38.8 % (35.4-49); HEMOGLOBIN 13.3 GM/dL (11.7-16.9); LYMPH % 12.7 % (8-40); MCH 31.1 pg (25.7-33.7); MCHC 34.3 g/dl (32.0-35.9); MEAN CELL VOLUME 90.6 fl (80-96); MEAN PLT VOLUME 7.9 fl (7.5-11.1); MONO % 6.3 % (3.8-10.2); NEUT % 80.6 % (42.8-82.8); PLATELET COUNT 170 K/MM3 (134-434); RBC 4.28 M/mm3 (4.00-5.60); RDW 13.8 % (11.9-15.9); WHITE BLOOD COUNT 6.8 K/mm3 (4.0-10.0)
[2019-04-10] MEDS ORDERED: ONDANSETRON 4 MG/2 ML VIAL ONE (08:49)
[2019-04-10 09:14] LABS: MAGNESIUM 2.2 mg/dL (1.8-2.4)
--- NOTE | 2019-04-10 09:27 | PDOC ---
Documentation entered by Will Motta SCRIBE, acting as scribe for Efrain Washington MD. Efrain Washington MD: This documentation has been prepared by the juaneÁngela Elijah, SCRIBE, under my direction and personally reviewed by me in its entirety. I confirm that the documentation accurately reflects all work, treatment, procedures, and medical decision making performed by me. History of Present Illness - General Chief Complaint: Pain, Acute Stated Complaint: ABD PAIN/FEVER Time Seen by Provider: 04/10/19 08:17 History Source: Patient Exam Limitations: No Limitations - History of Present Illness Initial Comments: 04/10/19 08:56 Patient is a 68 year old male with a past medical history of Diabetes, Hyperlipidemia, and Hypertension who presents with diffuse Crampy lower left quadrant abdominal pain over the last two days, 10 \10, without radiation, loss of appetite, Multiple episodes of diarrhea, last bowel movement was this morning, and subjective fever. Patient had an associated episode of Nausea yesterday but has since subsided. Denies vomiting, hematochezia, Dysuria. Social History: No Tobacco and No Alcohol use Past Surgical History: Surgery for hernia a month ago PCP: Dr. Tapia Past History - Past Medical History Allergies/Adverse Reactions: Allergies Allergy/AdvReac Type Severity Reaction Status Date / Time No Known Allergies Allergy Verified 04/10/19 08:06 Home Medications: Ambulatory Orders Atorvastatin Ca [Lipitor] 40 mg PO HS 02/17/19 Glipizide 10 mg PO ASDIR 02/17/19 Metformin HCl [Glucophage] 1,000 mg PO ASDIR 02/17/19 COPD: No Diabetes: Yes GI Disorders: Yes HTN: Yes Hypercholesterolemia: Yes - Suicide/Smoking/Psychosocial Hx Smoking History: Never smoked Hx Alcohol Use: No Drug/Substance Use Hx: No Hx Substance Use Treatment: No Review of Systems - Review of Systems Comments:: 04/10/19 08:56 CONSTITUTIONAL: +Subjective fever and chills. no fatigue EYES: No visual changes ENT: No ear pain, no sore throat CARDIOVASCULAR: No chest pain, no palpitations RESPIRATORY: No cough, no SOB GI: +abdominal pain to lower left quadrant no nausea. +Diarrhea. no vomiting, no constipation GENITOURINARY: No dysuria, no frequency, no hematuria MUSKULOSKELETAL: No backpain, no joint pain, no myalgias SKIN: No rash NEURO: No headache *Physical Exam - Vital Signs Last Vital Signs Temp Pulse Resp BP Pulse Ox 99 F 69 18 113/73 99 04/10/19 08:08 04/10/19 08:08 04/10/19 08:08 04/10/19 08:08 04/10/19 08:08 - Physical Exam Comments: 04/10/19 08:58 CONSTITUTIONAL: Well-appearing; well-nourished; in no apparent distress HEAD: Normocephalic; atraumatic EYES: PERRL; EOM intact ENMT: +Dry Mucous Membrane. External appears normal; normal oropharynx NECK: Supple; non-tender; no cervical lymphadenopathy CARD: Normal S1, S2; no murmurs, rubs, or gallops RESP: Normal chest excursion with respiration; breath sounds clear and equal bilaterally; no wheezes, rhonchi, or rales ABD: +Right Lower Quadrant supra pubic. +Left Lower Quadrant voluntary guarding without rebound. Soft, non-distended; no palpable organomegaly, no palpable hernias BACK: +Left CVA Tenderness EXT: Normal ROM in all four extremities; non-tender to palpation; distal pulses intact SKIN: Warm, dry, no rash NEURO: No focal neurological deficiencies. Heart Score/ECG Review - ECG Intrepretation Comment:: 04/10/19 08:58 EKG performed at at 8:37 am Vent Rate 61 BPM IN interval 166ms QRS duration 140 ms QT/QTc 468/471 ms P-R-T axes 38 47 38 Normal Sinus Rhythm Right Bundle Branch block Cannot rule out Inferior infarct, age undetermined Abnormal ECG ED Treatment Course - LABORATORY CBC & Chemistry Diagram: 04/10/19 08:35 04/10/19 08:35 - ADDITIONAL ORDERS Additional order review: 04/10/19 08:35 RBC 4.28 MCV 90.6 MCHC 34.3 RDW 13.8 MPV 7.9 Neutrophils % 80.6 D Lymphocytes % 12.7 D Monocytes % 6.3 Eosinophils % 0.2 D Basophils % 0.2 - Medications Given in the ED: ED Medications Discontinued Medications Generic Name Dose Route Start Last Admin Trade Name Freq PRN Reason Stop Dose Admin Ondansetron HCl 4 mg 04/10/19 08:34 04/10/19 08:47 Zofran Injection IVPUSH 04/10/19 08:35 4 mg ONCE ONE Administration Medical Decision Making - Medical Decision Making 04/10/19 09:08 Rectal Temperature 100 F 04/10/19 09:24 Patient is a 68-year-old male with history of diabetes, hypertension and hypercholesterolemia his presents with signs and symptoms of colitis versus diverticulitis versus gastroenteritis. Patient has a low-grade fever but is nontoxic appearing with stable vital signs. Because membranes are dry. Serial abdominal exams reveal bilateral lower quadrant tenderness to deep palpation without rebound but with voluntary guarding. Will hydrate, we'll obtain CBC/CMP/ UA. Will obtain CT with by mouth contrast. Will reassess. 04/10/19 13:14 patient's CBC/CMP/UA within normal limit. CT of abdomen and pelvis with by mouth contrast revealsbowel wall thickening involving the smalland large bowel consistent with enterocolitis. Patient reports significant improvement in level of his pain. Patient ate a meal in the ER. Patient does endorse that he has had several more episodes of loose watery stools but no evidence of hematochezia. Will consult GI. 04/10/19 14:46 Patient reassessed. Patient is resting comfortably without any additional episodes of nausea, vomiting or diarrhea. Case discussed with Dr. Chatman of GI. She agrees with the plan of care: Since there is no significant evidence of dehydration, no evidence of hematochezia, patient is nontoxic appearing and is afebrile,and tolarates po solids and liquids, he is safe for outpatient discharge with clear instructions to return immediately for severe pain, fever, or rectal bleeding. Otherwise patient will follow-up with GI in several days for further evaluation and treatment. *DC/Admit/Observation/Transfer Diagnosis at time of Disposition: Enterocolitis Diarrhea Qualifiers: Diarrhea type: unspecified type Qualified Code(s): R19.7 - Diarrhea, unspecified - Discharge Dispostion Disposition: HOME Condition at time of disposition: Stable - Referrals Referrals: Ramon Tapia MD [Primary Care Provider] - Jennifer Chatman DO [Staff Physician] - - Patient Instructions Printed Discharge Instructions: DI for Colitis, DI for Diarrhea and Traveler's Diarrhea -- Adult Additional Instructions: please follow-up with GI doctor as instructed. return immediately for severe abdominal pain, fever, rectal bleeding. Avoid dairy or fried foods for the next several days. Print Language: VIETNAMESE - Post Discharge Activity
[2019-04-10] MEDS ORDERED: ACETAMINOPHEN 1000 MG/100 ML VIAL (NON FORMULARY) IVPB ONE (09:31)
[2019-04-10] MEDS ORDERED: ACETAMINOPHEN INJECTION 100 ML IVPB ONE (09:33)
[2019-04-10 09:45] LABS: ALBUMIN 3.8 g/dl (3.4-5.0); BILIRUBIN,TOTAL 1.2 mg/dL (0.2-1); BLOOD UREA NITROGEN 10.4 mg/dL (7-18); CALCIUM 8.9 mg/dL (8.5-10.1); CREATININE 0.8 mg/dL (0.55-1.3); POTASSIUM 3.7 mmol/L (3.5-5.1); TOT PROT 7.7 g/dl (6.4-8.2)
[2019-04-10 10:44] LABS: EPI CELLS 0.2 /HPF (0-5/HPF); HYALINE CASTS 0 /lpf (0-8); PH,URINE 5.5 (5.0-8.0); URINE APPEARANCE CLEAR; URINE BACTERIA 0.7 /hpf (NEGATIVE); URINE BILIRUBIN NEGATIVE (NEGATIVE); URINE COLOR YELLOW; URINE GLUCOSE (UA) NEGATIVE (NEGATIVE); URINE KETONE NEGATIVE (NEGATIVE); URINE LEUK ESTERASE NEGATIVE (NEGATIVE); URINE NITRITE NEGATIVE (NEGATIVE); URINE PROTEIN NEGATIVE (NEGATIVE); URINE RBC 1 /hpf (0-4); URINE UROBILINOGEN 0.2 mg/dL (0.2-1.0); URINE WBC 0 /hpf (0-5)
[2019-04-10 12:22] VITALS: BP 128/84; PULSE 82; TEMP 98.7
--- NOTE | 2019-04-10 15:27 | EKG ---
Test Reason : Blood Pressure : / mmHG Vent. Rate : 061 BPM Atrial Rate : 061 BPM P-R Int : 166 ms QRS Dur : 140 ms QT Int : 468 ms P-R-T Axes : 038 047 038 degrees QTc Int : 471 ms NORMAL SINUS RHYTHM RIGHT BUNDLE BRANCH BLOCK CANNOT RULE OUT INFERIOR INFARCT , AGE UNDETERMINED ABNORMAL ECG NO PREVIOUS ECGS AVAILABLE Confirmed by LIZ HICKS MD ([id number]) on 04/10/2019 3:27:43 PM Referred By: Confirmed By:LIZ HICKS MD
== END 2019-04-10 15:11 | disposition home or self-care (01) ==
LOC: JER 08:05
PROC: 3E033NZ Introduction of Analgesics, Hypnotics, Sedatives into Peripheral Vein, Percutaneous Approach (ICD-10-PCS; principal; 2019-04-10)
PROC: 3E033GC Introduction of Other Therapeutic Substance into Peripheral Vein, Percutaneous Approach (ICD-10-PCS; 2019-04-10)
PROC: 3E0337Z Introduction of Electrolytic and Water Balance Substance into Peripheral Vein, Percutaneous Approach (ICD-10-PCS; 2019-04-10)
DX: K52.9 Noninfective gastroenteritis and colitis, unspecified (principal); E11.9 Type 2 diabetes mellitus without complications; I10 Essential (primary) hypertension; E78.00 Pure hypercholesterolemia, unspecified
CPT/HCPCS: 36415; 74176-TC; 80053; 81003; 83690; 83735; 85025; 87045; 87046; 87086; 87177; 87209; 87324; 87449; 93005; 93010; 96361; 96374; 96375; 99282-25; J0131; J7030; Q9967

== ENCOUNTER 2019-06-12 09:17 | Day surgery (SDC) | payer MEDICARE, OTHER ==
[2019-06-07 11:04] VITALS: BMI 30.2
[2019-06-12] MEDS ORDERED: LIDOCAINE HCL/PF 2% SDV 5ML VIAL ONE (11:08)
[2019-06-12] MEDS ORDERED: PROPOFOL 20 ML ONE (11:08)
[2019-06-12 12:09] VITALS: TEMP 97.8
[2019-06-12 12:32] VITALS: BP 135/65; PULSE 50
--- NOTE | 2019-06-14 11:52 | PATH ---
Surgical Pathology Report Patient Name: ROGE POLK [facility]. Rec. #: [id number] /Age/Gender: 1950 (Age: 69) / M Account: [id number] Location: [facility] Taken: 06/12/2019 Received: 06/12/2019 Reported: 06/14/2019 Physicians: Jennifer Chatman M.D. Specimen(s) Received A: TERMINAL ILIUM B: RIGHT COLON C: TRANSVERSE COLON D: DESCENDING COLON Clinical History Diarrhea Postoperative diagnosis: Diverticulosis, hemorrhoids Final Diagnosis A. TERMINAL ILEUM, BIOPSY: TERMINAL ILEAL MUCOSA WITH NO SIGNIFICANT PATHOLOGIC CHANGE. NO HISTOLOGIC EVIDENCE OF INTRAEPITHELIAL LYMPHOCYTOSIS. B. RIGHT COLON, BIOPSY: COLONIC MUCOSAL WITH REACTIVE LYMPHOID AGGREGATES. C. TRANSVERSE COLON, BIOPSY: COLONIC MUCOSA WITH NO SIGNIFICANT PATHOLOGY CHANGE. D. DESCENDING COLON, BIOPSY: COLONIC MUCOSA WITH NO SIGNIFICANT PATHOLOGIC CHANGE. Electronically Signed Joshua Quintero M.D. Gross Description A. Received in formalin, labeled "biopsy terminal ileum" is a soares, irregular portion of soft tissue measuring 0.5 cm. in greatest dimension. The specimen is submitted in toto in one cassette. B. Received in formalin, labeled "biopsy right colon" is a soares, irregular portion of soft tissue measuring 0.6 cm. in greatest dimension. The specimen is submitted in toto in one cassette. C. Received in formalin, labeled "biopsy transverse colon" is a soares, irregular portion of soft tissue measuring 0.3 cm. in greatest dimension. The specimen is submitted in toto in one cassette. D. Received in formalin, labeled "biopsy descending colon" is a soares, irregular portion of soft tissue measuring 0.8 cm. in greatest dimension. The specimen is submitted in toto in one cassette. DL06/13/2019 [place]udi06/13/2019
== END 2019-06-12 12:30 | disposition home or self-care (01) ==
LOC: FASU-ENDO 09:17
PROVIDERS: ATTEND Internal Medicine Gastroenterology
PROC: 0DBL8ZX Excision of Transverse Colon, Via Natural or Artificial Opening Endoscopic, Diagnostic (ICD-10-PCS; 2019-06-12)
PROC: 0DBF8ZX Excision of Right Large Intestine, Via Natural or Artificial Opening Endoscopic, Diagnostic (ICD-10-PCS; 2019-06-12)
PROC: 0DBB8ZX Excision of Ileum, Via Natural or Artificial Opening Endoscopic, Diagnostic (ICD-10-PCS; 2019-06-12)
PROC: 0DBM8ZX Excision of Descending Colon, Via Natural or Artificial Opening Endoscopic, Diagnostic (ICD-10-PCS; principal; 2019-06-12 11:13)
DX: K63.89 Other specified diseases of intestine (principal); K57.30 Diverticulosis of large intestine without perforation or abscess without bleeding; K64.2 Third degree hemorrhoids; R19.7 Diarrhea, unspecified; R10.9 Unspecified abdominal pain
CPT/HCPCS: 82962; 88305-TC

== ENCOUNTER 2019-08-28 09:55 | Day surgery (SDC) | payer MEDICARE, OTHER ==
[2019-08-22 16:19] VITALS: BMI 29.6
[2019-08-28] MEDS ORDERED: PROPOFOL 20 ML ONE (10:46)
[2019-08-28 12:04] VITALS: BP 121/81; PULSE 64; TEMP 98
--- NOTE | 2019-09-02 11:04 | PATH ---
Surgical Pathology Report Patient Name: ROGE POLK [facility]. Rec. #: [id number] /Age/Gender: 1950 (Age: 69) / M Account: [id number] Location: [facility] Taken: 08/28/2019 Received: 08/28/2019 Reported: 09/02/2019 Physicians: Jennifer Chatman M.D. Specimen(s) Received A: SECOND PORTION OF DUODENUM B: ANTRUM C: GE JUNCTION Clinical History Dyspepsia, abdominal pain Postoperative diagnosis: Gastritis Final Diagnosis A. SECOND PORTION OF DUODENUM, BIOPSY: DUODENAL MUCOSA WITH NO PATHOLOGIC FINDINGS. B. GASTRIC ANTRUM, BIOPSY: SEVERE CHRONIC ACTIVE GASTRITIS. IMMUNOSTAIN SHOWS NUMEROUS H PYLORI ORGANISMS. C. GE JUNCTION, BIOPSY: ESOPHAGOGASTRIC (SQUAMOCOLUMNAR) MUCOSA SHOWING MODERATE CHRONIC ACTIVE INFLAMMATION WITH FOCAL INTESTINAL METAPLASIA (SEE NOTE). NEGATIVE FOR DYSPLASIA. Note: These findings may be compatible with Patel's esophagus in conjunction with appropriate endoscopic findings. Electronically Signed Leslie Jones M.D. Gross Description A. Received in formalin, labeled "biopsy second portion of duodenum" are 2 soares, irregular portions of soft tissue measuring 0.1 and 0.2 cm. in greatest dimension. The specimens are submitted in toto in one cassette. B. Received in formalin, labeled "biopsy gastric antrum" are 2 soares, irregular portions of soft tissue measuring 0.2 and 0.3 cm. in greatest dimension. The specimens are submitted in toto in one cassette. C. Received in formalin, labeled "biopsy GE junction" is a soares, irregular portion of soft tissue measuring 0.3 cm. in greatest dimension. The specimen is submitted in toto in one cassette. 08/29/2019 [place]08/29/2019
== END 2019-08-28 12:00 | disposition home or self-care (01) ==
LOC: FASU-ENDO 09:55
PROVIDERS: ATTEND Internal Medicine Gastroenterology
PROC: 0DB68ZX Excision of Stomach, Via Natural or Artificial Opening Endoscopic, Diagnostic (ICD-10-PCS; 2019-08-28)
PROC: 0DB58ZX Excision of Esophagus, Via Natural or Artificial Opening Endoscopic, Diagnostic (ICD-10-PCS; 2019-08-28)
PROC: 0DB98ZX Excision of Duodenum, Via Natural or Artificial Opening Endoscopic, Diagnostic (ICD-10-PCS; principal; 2019-08-28 11:11)
DX: K29.50 Unspecified chronic gastritis without bleeding (principal); B96.81 Helicobacter pylori [H. pylori] as the cause of diseases classified elsewhere; K20.8 Other esophagitis; R10.13 Epigastric pain
CPT/HCPCS: 82962; 88305-TC; 88342-TC